=== PATIENT | male | born 1970 | race Caucasian/White ===

== ENCOUNTER 2018-08-31 08:52 | Emergency (ER) | payer BC, OTHER ==
[~2018-08-31] VITALS: Ht 182.9 cm; Wt 90.7 kg
[2018-08-31 09:00] VITALS: BP 153/95
[2018-08-31] MEDS ORDERED: ACETAMINOPHEN 500 MG TAB PO ONE (11:00)
== END 2018-08-31 10:53 | disposition home or self-care (01) ==
LOC: ER 08:56
DX: S60.221A Contusion of right hand, initial encounter (principal); S00.83XA Contusion of other part of head, initial encounter; S60.812A Abrasion of left wrist, initial encounter; S80.211A Abrasion, right knee, initial encounter; W19.XXXA Unspecified fall, initial encounter; Y93.89 Activity, other specified; Y99.8 Other external cause status; Y92.89 Other specified places as the place of occurrence of the external cause
CPT/HCPCS: 70450; 73110; 73130